=== PATIENT | female | born 1945 ===

== ENCOUNTER 2021-10-15 22:11 | Emergency (ER) | payer MEDICARE, OTHER ==
[2021-10-15] MEDS ORDERED: METOCLOPRAMIDE 10 MG TAB PO ONE (22:28)
[2021-10-15] MEDS ORDERED: ACETAMINOPHEN 325 MG TAB PO ONE (22:28)
--- NOTE | 2021-10-15 22:29 | Emergency Department Report ---
ED General Adult HPI - General Chief complaint: Pain General Stated complaint: PAIN ALL OVER Time Seen by Provider: 10/15/21 22:20 Source: patient, EMS (Verbal report received from emergency medical services. EMS documentation not available at time of chart dictation ), RN notes reviewed Mode of arrival: Ambulatory Limitations: No Limitations - History of Present Illness Initial comments: The patient was evaluated in the emergency department for symptoms described in the history of present illness. He/she was evaluated in the context of the global COVID-19 pandemic, which necessitated consideration that the patient might be at risk for infection with the virus that causes COVID-19. Institutional protocols and algorithms that pertain to the evaluation of patients at risk for COVID-19 are in a state of rapid change based on information released by regulatory bodies including the CDC and federal and state organizations. These policies and algorithms were followed during the patient's care in the emergency department. Please note that these policies, procedures and recommendations changed on a rapid basis. Is a 76-year-old female who was brought to the hospital by emergency medical services for evaluation of mechanical fall. [place] from [place], was reportedly using a commode to go to the bathroom, and fell. Prior to falling, she reports that she is not having any pain or symptoms. She fell onto her head and neck, and complains of headache, shoulder pain and neck pain, hip pain, and chest pressure after the fall. She denies additional injuries and complaints Please note this patient speaks Welsh and [place]an. In addition, this provider is conversant in [place]. Patient able to communicate in both Welsh and [place]an. EMS reports normal vital signs in the field. -: Sudden Location: head, neck, back Consistency: constant Improves with: rest Worsens with: movement - Related Data Previous Rx's Medication Instructions Recorded Last Taken Type Acetaminophen [Non-Aspirin Extra 500 mg PO Q6HR PRN #30 tablet 10/15/21 Unknown Rx Strength] Metoclopramide [Reglan] 10 mg PO QID PRN #30 tablet 10/15/21 Unknown Rx Allergies Allergy/AdvReac Type Severity Reaction Status Date / Time aspirin AdvReac Anaphylaxis Verified 10/15/21 23:25 ED Review of Systems ROS: Stated complaint: PAIN ALL OVER Other details as noted in HPI Constitutional: denies: fever Eyes: denies: eye discharge ENT: denies: epistaxis Respiratory: denies: cough Cardiovascular: as per HPI Gastrointestinal: denies: abdominal pain Musculoskeletal: back pain, arthralgia, myalgia Neurological: headache. denies: weakness ED Past Medical Hx - Medications Home Medications: Home Medications Medication Instructions Recorded Confirmed Last Taken Type Acetaminophen [Non-Aspirin Extra 500 mg PO Q6HR PRN #30 tablet 10/15/21 Unknown Rx Strength] Metoclopramide [Reglan] 10 mg PO QID PRN #30 tablet 10/15/21 Unknown Rx ED Physical Exam - General Limitations: No Limitations General appearance: alert, anxious - Head Head exam: Present: atraumatic, normocephalic - Eye Eye exam: Present: normal appearance, EOMI. Absent: nystagmus - ENT ENT exam: Present: normal exam, normal orophraynx, mucous membranes moist, normal external ear exam - Neck Neck exam: Present: normal inspection, tenderness (There is muscular tenderness. There is no midline cervical spine tenderness.), full ROM. Absent: meningismus - Respiratory Respiratory exam: Present: normal lung sounds bilaterally. Absent: respiratory distress, wheezes, rales, rhonchi, stridor, decreased breath sounds - Cardiovascular Cardiovascular Exam: Present: regular rate, normal rhythm, normal heart sounds. Absent: bradycardia, tachycardia, irregular rhythm, systolic murmur, diastolic murmur, rubs, gallop - GI/Abdominal GI/Abdominal exam: Present: soft. Absent: distended, tenderness, guarding, rebound, rigid - Extremities Exam Extremities exam: Present: normal inspection, full ROM, pedal edema, other (2+ pulses noted in the bilateral upper and lower extremities. There is no palpable cord. negative Homans sign. Muscular compartments are soft. The pelvis is stable.). Absent: tenderness - Back Exam Back exam: Present: normal inspection, paraspinal tenderness. Absent: CVA tenderness (R), CVA tenderness (L), vertebral tenderness - Neurological Exam Neurological exam: Present: alert, oriented X3, other (No facial droop. Tongue midline. Extraocular movements intact bilaterally. Facial sensation intact to light touch in V1, V2, V3 distribution bilaterally. 5 and a 5 strength in 4 extremities. Sensation intact to light touch in 4 extremities.). Absent: motor sensory deficit - Psychiatric Psychiatric exam: Present: anxious - Skin Skin exam: Present: warm, dry, intact, normal color. Absent: rash ED Course Vital Signs 10/15/21 22:23 Temperature 98.5 F Pulse Rate 77 Respiratory 22 Rate Blood Pressure 153/81 [Right] O2 Sat by Pulse 100 Oximetry - Reevaluation(s) Reevaluation #1: 10/15/21 23:26 Differential diagnosis, including but not limited to: Fall, concussion, closed head injury, whiplash, sprain, strain Assessment and plan: 76-year-old female, who is afebrile, with reassuring vital signs, presenting with mechanical fall without antecedent symptoms, while using a comm[place] CT scan of the brain and cervical spine are negative for acute or traumatic findings. X-ray the chest is negative for acute or traumatic findings. EKG is not consistent with STEMI. Pelvis x-ray is pending, but do not anticipate any significant injury. Patient is awake, alert, protecting her airway, moving 4 extremities, and does not have any neurologic deficits at this time. CT imaging was obtained given her advanced age, and did not demonstrate any emergent findings. 10/16/21 00:25 Patient is reassessed. She is ambulatory with a steady gait. Objective imaging studies are unremarkable. Patient remains awake, alert, oriented, sober, of sound mind. Patient will be given a list of outpatient resources that she may follow-up with. ED Medical Decision Making - Lab Data Vital Signs 10/15/21 22:23 Temperature 98.5 F Pulse Rate 77 Respiratory 22 Rate Blood Pressure 153/81 [Right] O2 Sat by Pulse 100 Oximetry - EKG Data -: EKG Interpreted by Nm EKG shows normal: sinus rhythm Rate: normal - EKG Data When compared to previous EKG there are: previous EKG unavailable 10/15/21 23:22 The EKG is interpreted at 22: 37 Sinus rhythm, 76 bpm. Left axis deviation. Left anterior fascicular block. QTc 4 5 4 ms. Nonspecific motion artifact. Not a STEMI. No prior for comparison. - Radiology Data Radiology results: pending, report reviewed, image reviewed CHEST 1 VIEW INDICATION / CLINICAL INFORMATION: shoulder pain and pressure after fall. COMPARISON: None available. FINDINGS: SUPPORT DEVICES: None. HEART / MEDIASTINUM: No significant abnormality. LUNGS / PLEURA: No significant pulmonary or pleural abnormality. No pneumothorax. ADDITIONAL FINDINGS: No significant additional findings. IMPRESSION: 1. No acute findings. Signer Name: Sami Ogden MD Signed: 10/15/2021 10:02 PM Workstation Name: [id number] CT HEAD WITHOUT CONTRAST INDICATION / CLINICAL INFORMATION: closed head injury fall. TECHNIQUE: All CT scans at this location are performed using CT dose reduction for ALARA by means of automated exposure control. COMPARISON: None available. FINDINGS: HEMORRHAGE: None. EXTRA-AXIAL SPACES: Normal in size and morphology for the patient's age. VENTRICULAR SYSTEM: Normal in size and morphology for the patient's age. CEREBRAL PARENCHYMA: No significant abnormality. No acute territorial infarct. MIDLINE SHIFT OR HERNIATION: None. CEREBELLUM / BRAINSTEM: No significant abnormality. ORBITS: Normal as visualized. SOFT TISSUES of HEAD: No significant abnormality. CALVARIUM: No significant abnormality. PARANASAL SINUSES / MASTOID AIR CELLS: Normal as visualized. ADDITIONAL FINDINGS: None. IMPRESSION: 1. No acute intracranial abnormality. Signer Name: Sami Ogden MD Signed: 10/15/2021 10:09 PM Workstation Name: [id number] [facility] [address] [place] [address] Cat Scan Report Signed Patient: ANGEL BRITTON MR#: [id number] : 1945 Acct:[id number] Age/Sex: 76 / F ADM Date: 10/15/21 Loc: ED Attending Dr: Ordering Physician: SUZY SAM MD Date of Service: 10/15/21 Procedure(s): CT cervical spine wo con Accession Number(s): [id number] cc: SUZY SAM MD CT CERVICAL SPINE WITHOUT CONTRAST INDICATION: neck pain fall. TECHNIQUE: All CT scans at this location are performed using CT dose reduction for ALARA by means of automated exposure control. Axial CT images were obtained through the cervical spine. Sagittal and coronal reformatted images were produced. COMPARISON: None available. FINDINGS: Fracture: None. Subluxation: None. Spinal canal: No significant compromise. Disc spaces: Mild discogenic degenerative disease C3-4 and C5-6. Failure of segmentation C4- 5/congenital fusion Facet joints: Moderate bilateral facet degenerative disease C5-T1 Paraspinal soft tissues: No soft tissue swelling. Normal. Additional findings: None. Lung apices: Normal. IMPRESSION: 1. No acute findings. 2. Mild to moderate degenerative changes cervical spine Signer Name: Sami Ogden MD Signed: 10/15/2021 11:08 PM Workstation Name: [id number] Transcribed By: TL Dictated By: Sami Ogden MD Electronically Authenticated By: Sami Ogden MD Signed Date/Time: 10/15/212307 DD/ 04 PELVIS 1 VIEW(S) INDICATION / CLINICAL INFORMATION: leg pain fall COMPARISON: None available. FINDINGS: BONES / JOINT(S): No acute fracture or subluxation. No significant arthritis. 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 ADDITIONAL FINDINGS: None. IMPRESSION: 1. No acute findings. Signer Name: Sami Ogden MD Signed: 10/15/2021 10:32 PM Workstation Name: [id number] Critical care attestation.: If time is entered above; I have spent that time in minutes in the direct care of this critically ill patient, excluding procedure time. ED Disposition Clinical Impression: Neck pain Closed head injury Qualifiers: Encounter type: initial encounter Qualified Code(s): S09.90XA - Unspecified injury of head, initial encounter DJD (degenerative joint disease), cervical Qualifiers: Spinal osteoarthritis complication: without myelopathy or radiculopathy Qualified Code(s): M47.812 - Spondylosis without myelopathy or radiculopathy, cervical region Fall Qualifiers: Encounter type: initial encounter Qualified Code(s): W19.XXXA - Unspecified fall, initial encounter Leg pain Qualifiers: Laterality: bilateral Qualified Code(s): M79.604 - Pain in right leg; M79.605 - Pain in left leg Disposition: 01 HOME / SELF CARE / HOMELESS Is pt being admited?: No Does the pt Need Aspirin: No Condition: Good Additional Instructions: Pain gets worse before gets better after fall and blunt trauma. Rest and avoid heavy lifting, and avoid strenuous physical activity. Engage in physical activities as tolerated. Alternate ice packs and heat packs as needed for physical pain For pain, the patient can take alternating with acetaminophen, 650 mg every 4 hours, also which can be purchased [id number]. Return to the ER right away with new pain, worsened pain, migration of pain, fevers, chills, confusion, weakness, numbness, intractable nausea or vomiting, severe chest pain, or severe abdominal pain. Take the Reglan medication as needed for nausea, vomiting and headache. Follow-up with a primary care doctor within the next week. Please return to the emergency room right away with new pain, worsened pain, migration of pain, projectile vomiting, change in mental status, confusion, inability tolerate liquid feeds, new, worsened or different symptoms not present on the initial emergency room evaluation Prescriptions: Acetaminophen [Non-Aspirin Extra Strength] 500 mg PO Q6HR PRN #30 tablet PRN Reason: Pain , Severe (7-10) Metoclopramide [Reglan] 10 mg PO QID PRN #30 tablet PRN Reason: Nausea Referrals: PAUL IBRAHIM MD [Staff Physician] - 3-5 Days [facility] [Provider Group] - 3-5 Days
[2021-10-15 22:39] VITALS: BP 153/81
--- NOTE | 2021-10-15 23:06 | XRay Report ---
CHEST 1 VIEW INDICATION / CLINICAL INFORMATION: shoulder pain and pressure after fall. COMPARISON: None available. FINDINGS: SUPPORT DEVICES: None. HEART / MEDIASTINUM: No significant abnormality. LUNGS / PLEURA: No significant pulmonary or pleural abnormality. No pneumothorax. ADDITIONAL FINDINGS: No significant additional findings. IMPRESSION: 1. No acute findings. Signer Name: Sami Ogden MD Signed: 10/15/2021 11:02 PM Workstation Name: [id number]
--- NOTE | 2021-10-15 23:12 | Cat Scan Report ---
CT CERVICAL SPINE WITHOUT CONTRAST INDICATION: neck pain fall. TECHNIQUE: All CT scans at this location are performed using CT dose reduction for ALARA by means of automated e xposure control. Axial CT images were obtained through the cervical spine. Sagittal and coronal reformatted images we re produced. COMPARISON: None available. FINDINGS: Fracture: None. Subluxation: None. Spinal canal: No significant compromise. Disc spaces: Mild discogenic degenerative disease C3-4 and C5-6. 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 Normal. Additional findings: None. Lung apices: Normal. IMPRESSION: 1. No acute findings. 2. Mild to moderate degenerative changes cervical spine Signer Name: Sami Ogden MD Signed: 10/15/2021 11:08 PM Workstation Name: [id number]
--- NOTE | 2021-10-15 23:13 | Cat Scan Report ---
CT HEAD WITHOUT CONTRAST INDICATION / CLINICAL INFORMATION: closed head injury fall. TECHNIQUE: All CT scans at this location are performed using CT dose reduction for ALARA by means of automated e xposure control. COMPARISON: None available. FINDINGS: HEMORRHAGE: None. EXTRA-AXIAL SPACES: Normal in size and morphology for the patient's age. VENTRICULAR SYSTEM: Normal in size and morphology for the patient's age. CEREBRAL PARENCHYMA: No significant abnormality. No acute territorial infarct. MIDLINE SHIFT OR HERNIATION: None. CEREBELLUM / BRAINSTEM: No significant abnormality. ORBITS: Normal as visualized. SOFT TISSUES of HEAD: No significant abnormality. CALVARIUM: No significant abnormality. PARANASAL SINUSES / MASTOID AIR CELLS: Normal as visualized. ADDITIONAL FINDINGS: None. IMPRESSION: 1. No acute intracranial abnormality. Signer Name: Sami Ogedn MD Signed: 10/15/2021 11:09 PM Workstation Name: [id number]
--- NOTE | 2021-10-15 23:36 | XRay Report ---
PELVIS 1 VIEW(S) INDICATION / CLINICAL INFORMATION: leg pain fall COMPARISON: None available. FINDINGS: BONES / JOINT(S): No acute fracture or subluxation. No significant arthritis. SOFT TISSUES: Heterotopic ossification adjacent to right anterior superior iliac spine from old previ ous avulsion injury. ADDITIONAL FINDINGS: None. IMPRESSION: 1. No acute findings. Signer Name: Sami Ogden MD Signed: 10/15/2021 11:32 PM Workstation Name: [email or web address]
--- NOTE | 2021-10-16 12:14 | Electrocardiograph Report ---
[facility] Test Date: 2021-10-15 Test Time: 22:37:04 Pat Name: ANGEL BRITTON Department: Room: Gender: F Machine Set Up: PARVEEN : 1945 Requested By: SUZY SAM Order Number: [id number] Reading MD: Harsha Josue Measurements Intervals [place] Rate: 76 P: 71 CO: 154 QRS: -10 QRSD: 93 T: -12 QT: 404 QTc: 454 Interpretive Statements Sinus rhythm Nonspecific diffuse ST abnormality No previous ECG available for comparison Electronically Signed On 10-16-2021 12:13:46 EDT by Harsha Josue
== END 2021-10-16 02:24 | disposition home or self-care (01) ==
LOC: ED 22:11
DX: S09.90XA Unspecified injury of head, initial encounter (principal); M47.812 Spondylosis without myelopathy or radiculopathy, cervical region; M54.2 Cervicalgia; M79.605 Pain in left leg; W19.XXXA Unspecified fall, initial encounter; Y93.9 Activity, unspecified; Y92.89 Other specified places as the place of occurrence of the external cause; Y99.8 Other external cause status
CPT/HCPCS: 70450; 71045; 72125; 72170; 93005; 99284